=== PATIENT | female | born 1950 | race African-American/Black ===

== ENCOUNTER 2017-12-07 10:53 | Emergency (ER) | payer OTHER ==
[~2017-12-07] VITALS: Ht 160 cm; Wt 62.6 kg
[2017-12-07 12:12] LABS: ABSOLUTE BASOPHIL COUNT 0.1 /CUMM (0.0-0.2); ABSOLUTE EOSINOPHIL COUNT 0.2 /CUMM (0.0-0.7); ABSOLUTE GRANULOCYTE CT 6.4 /CUMM (1.4-6.5); ABSOLUTE LYMPH COUNT 2.7 /CUMM (1.2-3.4); ABSOLUTE MONOCYTE COUNT 0.3 /CUMM (0.10-0.60); BASOPHIL % 0.5 % (0.0-2.0); EOSINOPHIL % 1.9 % (0-5); HEMATOCRIT 34.2 % (37-47); MEAN CORPUSCULAR HGB 36.8 PG (27.0-31.0); MEAN CORPUSCULAR HGB CONC 33.8 G/DL (33.0-37.0); MEAN CORPUSCULAR VOLUME 108.7 FL (81.0-99.0); MEAN PLATELET VOLUME 6.4 FL (7.4-10.4); PLATELET COUNT 524 /CUMM (130-400); RBC DISTRIBUTION WIDTH 16.4 % (11.5-14.5); RED BLOOD CELL CT 3.15 /CUMM (4.20-5.40); WHITE BLOOD CELL COUNT 9.6 /CUMM (4.8-10.8)
--- NOTE | 2017-12-07 12:48 | CT SCAN REPORT ---
EXAMINATION: CT ABDOMEN AND PELVIS WITHOUT CONTRAST CLINICAL INFORMATION: Left lower quadrant pain for 2 weeks. Presumptive diagnosis of diverticulitis, colitis. COMPARISON: None. TECHNIQUE: Multidetector volumetric imaging was performed from the superior aspect of the liver through the pubic symphysis. Sagittal and coronal reformatted images were obtained on the technologist workstation. DLP: 246.52 mGy-cm. FINDINGS: LUNG BASES: There is a 2.1 x 2.4 cm intrapulmonary cyst/pneumatocele in the right lower lobe (series 2, image 6). Lung bases are otherwise unremarkable. LIVER, GALLBLADDER, AND BILIARY TREE: The liver is normal in size, shape, and attenuation. Evaluation for focal hepatic lesion is limited on noncontrast imaging. There is subtle 1.8 x 1.2 cm masslike low attenuation seen in the left lobe of the liver near the hepatic dome and the stomach (series 2, image 8), most likely related to beam hardening artifact, though a subtle hepatic mass in this location cannot be entirely excluded. No biliary ductal dilatation is present. Post cholecystectomy jaylene are in place with no evidence of focal fluid collection in the gallbladder fossa or abnormal intra or extrahepatic biliary dilatation. PANCREAS: There is fatty infiltration seen in the uncinate process of the pancreas. Pancreatic body and tail are diffusely atrophic with relative enlargement of the pancreatic head seen. No definite pancreatic ductal dilatation or discrete mass appreciated on noncontrast imaging. SPLEEN: Unremarkable on noncontrast imaging. ADRENAL GLANDS: There is a 1.7 x 1.4 cm low-attenuation mass in the left adrenal gland with mean attenuation values of 12.6 Hounsfield units, consistent with a benign lipid rich adenoma. The right adrenal gland is normal. KIDNEYS AND URETERS: The kidneys are normal in size, shape, and attenuation. No hydronephrosis or calculi seen. No perinephric stranding. There is a 1.7 x 1.9 cm fluid attenuation mass in the lower pole of the right kidney (series 2, image 34), consistent with a small cyst. The proximal ureters are visualized and appear decompressed and unremarkable. The mid and distal ureters are obscured by a large pelvic mass (see below section on pelvic viscera). BLADDER: Decompressed and poorly assessed. PELVIC VISCERA: There is a large approximately 7.5 x 0.2 x 6 x 1 cm pelvic mass seen in the left adnexa, extending to the uterus with complete loss of the intervening fat planes and volume averaging with adjacent fluid-filled loops of small bowel. Evaluation and measurement of this mass is difficult given lack of intravenous contrast and volume averaging with adjacent structures. Findings may represent a large exophytic uterine mass, such as a fibroid, though other etiology, including exophytic uterine cancer or neoplastic left ovarian mass cannot be entirely excluded. The left ovary is at least partially visualized and is contiguous with this mass (series 61, image 38 and series 602, image 63). Right ovary appears unremarkable. Small amount of free fluid is seen in the pelvis. GASTROINTESTINAL TRACT: There is extensive sigmoid colonic diverticulosis with a segmental approximately 12 cm long segment of the sigmoid colon appearing diffusely thick-walled with surrounding mesenteric edema and stranding, suspicious for acute diverticulitis. No evidence of bowel perforation is seen. There are linear bands extending from this inflamed loop of sigmoid colon to the above-described pelvic mass and there is also loss of fat plane between this segment of the colon and adjacent small bowel loops. No evidence of bowel obstruction is seen. The appendix is partially visualized and is unremarkable. ABDOMINAL WALL: There is a tiny fat-containing umbilical hernia. LYMPH NODES, VASCULAR: No definite abdominal or pelvic adenopathy is seen. Mild atherosclerotic calcifications of the aorta and branch vessels is seen. OSSEOUS STRUCTURES: Vacuum phenomenon in both sacroiliac joints with associated mild degenerative changes are seen. Mild facet arthropathy is noted in the mid and lower lumbar spine. IMPRESSION: 1. Segmental area of abnormal sigmoid colon wall thickening and surrounding edema and stranding is seen in region of colonic diverticulosis, suspicious for acute diverticulitis. The inflammatory changes appear to extend to the adjacent small bowel loops and pelvic organs. No evidence of bowel perforation or intra-abdominal abscess formation is seen. 2. Large pelvic mass, extending to the left of midline into the left adnexa. Based on the imaging available, this mass is felt to be most likely arising from the uterus rather than the left ovary with differential including large exophytic uterine fibroid versus other neoplastic uterine mass. A solid left ovarian mass is felt to be less likely. Evaluation is, however, limited on noncontrast study and further workup will be needed. Consider MRI scan of the pelvis with and without contrast. 3. Question of subtle 1.8 x 1.2 cm mass in the left lobe of the liver versus artifactual appearance due to beam hardening artifact. Consider follow-up imaging for further clarification of findings. 4. Relative enlargement of the pancreatic head with atrophy of the pancreatic body and tail is seen. Consider follow-up imaging to evaluate these findings in greater detail and exclude a subtle pancreatic head mass. This would likely best be accomplished by an MRI scan of the abdomen with and without contrast/MRCP. This would also allow further assessment of the questionable mass in the left lobe of the liver. 5. Status post cholecystectomy with no evidence of biliary dilatation. 6. Tiny fat-containing available hernia.
--- NOTE | 2017-12-07 13:07 | ED GI/GU/ABDOMINAL COMPLAINT ---
History of Present Illness General Chief Complaint: Female Urogenital Problems Stated Complaint: PELVIC PAIN Source: patient Exam Limitations: no limitations Vital Signs & Intake/Output Vital Signs & Intake/Output Vital Signs Date Time Temp Pulse Resp B/P B/P Pulse O2 O2 Flow FiO2 Mean Ox Delivery Rate 12/07 1137 97.4 104 18 139/84 97 Room Air Allergies Coded Allergies: Iodinated Contrast- Oral and IV Dye (Severe, RASH, SOB 12/07/17) STATINS (Severe, GI UPSET 12/07/17) levofloxacin (From LEVAQUIN) (Severe, SOB 12/07/17) Reconcile Medications Amoxicillin/Potassium Clav (Augmentin 875-125 Tablet) 875 MG-125 MG TABLET 1 TAB PO BID diverituclitis Triage Note: 67 Y/O FEMALE C/O DIFFUSE LOWER ABDOMINAL PAIN X 3 WEEKS, INTERMITTENT IN NATURE. PT REPORTS HX DIVERTICULITIS AND STATES THIS PAIN IS SIMILIAR. PT STATES SHE HAS BEEN EVAL'D BY HER DOCTOR AND GI; HAD CT SCAN WITH UNKNOWN RESULTS, "THERE WAS SOMETHING WITH THE COLON". PT DENIES N/V/D. REPORTS DECREASED APPETITE/PO INTAKE. DENIES URINARY SYMPTOMS. AFEBRILE Triage Nurses Notes Reviewed? yes LMP (ages 10-50): unknown ? n Is pt currently ? No Onset: Abrupt Duration: week(s): (3), constant, continues in ED, getting worse Timing: remote history Quality/Severity: moderate, sharpness Severity Numbers: 7 Location: left lower quadrant, suprapubic Radiation: no radiation Activities at Onset: none Prior Abdominal Problems: similar symptoms Past Sexual History: Unobtainable at this time HPI: 67-year-old female past medical history of diverticulosis, hypothyroidism and hypertension presents for evaluation of abdominal pain. Patient reports she first noticed the pain about 3 weeks ago and is been persistent. The pain is located in the left lower quadrant suprapubic area does not radiate. She saw her doctor last week and had a CAT scan but does not know the results. She is not taking any medicine for symptoms. Denies any nausea vomiting or diarrhea no fevers. (Kristofer Mukherjee) Past History Travel History Traveled to [place] past 21 day No Medical History Any Pertinent Medical History? see below for history Neurological: NONE EENT: NONE Cardiovascular: hypertension Respiratory: NONE Gastrointestinal: DIVERTICULOSIS Hepatic: NONE Renal: NONE Musculoskeletal: NONE Psychiatric: NONE Endocrine: hypothyroidism Blood Disorders: NONE Cancer(s): NONE DATA CENTER ARCHITECT/Reproductive: NONE Surgical History Surgical History: non-contributory Psychosocial History What is your primary language Welsh Tobacco Use: Current Daily Use Daily Tobacco Use Amount/Type: => 5 Cigarettes daily Family History Hx Contributory? No (Kristofer Mukherjee) Review of Systems Review of Systems Constitutional: Reports: no symptoms. EENTM: Reports: no symptoms. Respiratory: Reports: no symptoms. Cardiovascular: Reports: no symptoms. GI: Reports: see HPI, abdominal pain. Genitourinary: Reports: no symptoms. Musculoskeletal: Reports: no symptoms. Skin: Reports: no symptoms. Neurological/Psychological: Reports: no symptoms. Hematologic/Endocrine: Reports: no symptoms. Immunologic/Allergic: Reports: no symptoms. All Other Systems: Reviewed and Negative (Kristofer Mukherjee) Physical Exam Physical Exam General Appearance: well developed/nourished, no apparent distress, alert, awake Head: atraumatic, normal appearance Eyes: Bilateral: normal appearance, PERRL, EOMI. Ears, Nose, Throat, Mouth: moist mucous membrane Neck: normal inspection, supple, full range of motion Respiratory: normal breath sounds, chest non-tender, no respiratory distress, lungs clear Cardiovascular: regular rate/rhythm, normal peripheral pulses Peripheral Pulses: 2+ radial (R), 2+ radial (L) Gastrointestinal: normal bowel sounds, soft, no organomegaly, tenderness (llq) Back: normal inspection, normal range of motion, no vertebral tenderness Extremities: normal range of motion Neurologic/Psych: no motor/sensory deficits, awake, alert, oriented x 3, normal gait, normal mood/affect Skin: intact, normal color, warm/dry Core Measures ACS in differential dx? No Sepsis Present: No Sepsis Focused Exam Completed? No (Kristofer Mukherjee) Progress Differential Diagnosis: biliary colic, colon cancer, diverticulitis, ischemic bowel, inflamm bowel dis, kidney stone, pancreatitis, SBO, UTI/pyelo Plan of Care: Orders Procedure Date/time Status URINALYSIS 12/07 1140 Complete LIPASE 12/07 1140 Complete COMPREHENSIVE METABOLIC PANEL 12/07 1140 Complete CBC WITHOUT DIFFERENTIAL 12/07 1140 Complete Laboratory Tests 12/07/17 1205: Urine Color YEL, Urine Clarity CLEAR, Urine pH 6.0, Ur Specific [place] 1.025, Urine Protein NEG, Urine Ketones TRACE H, Urine Nitrite NEG, Urine Bilirubin NEG, Urine Urobilinogen 1.0, Ur Leukocyte Esterase NEG, Ur Microscopic EXAM NOT REQUIRED, Urine Hemoglobin NEG, Urine Glucose NEG 12/07/17 1158: Anion Gap 10, Estimated GFR 55 L, BUN/Creatinine Ratio 13.0, Glucose 94, Calcium 9.7, Total Bilirubin 0.4, AST 18, ALT 21, Alkaline Phosphatase 85, Total Protein 7.0, Albumin 4.1, Globulin 2.9, Albumin/Globulin Ratio 1.4, Lipase 54, CBC w Diff NO MAN DIFF REQ, RBC 3.15 L, MCV 108.7 H, MCH 36.8 H, MCHC 33.8, RDW 16.4 H, MPV 6.4 L, Gran % 67.0, Lymphocytes % 27.9, Monocytes % 2.7, Eosinophils % 1.9, Basophils % 0.5, Absolute Granulocytes 6.4, Absolute Lymphocytes 2.7, Absolute Monocytes 0.3, Absolute Eosinophils 0.2, Absolute Basophils 0.1 Patient is here with left lower quadrant abdominal pain that has been present for 3 weeks. She does have history of diverticulosis. Patient appears clinically well she is afebrile. Labs CT scan ordered. Blood work is unremarkable and unchanged. CT scan shows evidence of diverticulitis. There is also a large pelvic mass as well as abnormalities in the liver and pancreas. There is also lymphadenopathy and a concern for malignancy here. Suspect the diverticulitis is what brought the patient in. She will be started on Augmentin for this. Patient already has a referral with a appointment specialist and will be seeing them this coming week. She was advised to follow-up with her [facility] doctor as soon as possible. Patient already has someone that she will call. Discussed with patient about the urgency of close follow-up. Discussed return precautions in detail Case discussed with Dr. Warner he agrees Diagnostic Imaging: Viewed by Me: CT Scan. Discussed w/RAD: CT Scan. Radiology Impression: PATIENT: ULISES BOOTH PRESENT AGE: 67 PATIENT ACCOUNT NO: [id number] : 48 LOCATION: [facility] ORDERING PHYSICIAN: Kristofer OSORIO SERVICE DATE: 12/07/17-1139 EXAM TYPE: CAT - CT ABD & PELVIS W/O IV CONTRAS EXAMINATION: CT ABDOMEN AND PELVIS WITHOUT CONTRAST CLINICAL INFORMATION: Left lower quadrant pain for 2 weeks. Presumptive diagnosis of diverticulitis, colitis. COMPARISON: None. TECHNIQUE: Multidetector volumetric imaging was performed from the superior aspect of the liver through the pubic symphysis. Sagittal and coronal reformatted images were obtained on the technologist workstation. DLP: 246.52 mGy-cm. FINDINGS: LUNG BASES: There is a 2.1 x 2.4 cm intrapulmonary cyst/pneumatocele in the right lower lobe (series 2, image 6). Lung bases are otherwise unremarkable. LIVER, GALLBLADDER, AND BILIARY TREE: The liver is normal in size, shape, and attenuation. Evaluation for focal hepatic lesion is limited on noncontrast imaging. There is subtle 1.8 x 1.2 cm masslike low attenuation seen in the left lobe of the liver near the hepatic dome and the stomach (series 2, image 8), most likely related to beam hardening artifact, though a subtle hepatic mass in this location cannot be entirely excluded. No biliary ductal dilatation is present. Post cholecystectomy jaylene are in place with no evidence of focal fluid collection in the gallbladder fossa or abnormal intra or extrahepatic biliary dilatation. PANCREAS : There is fatty infiltration seen in the uncinate process of the pancreas. Pancreatic body and tail are diffusely atrophic with relative enlargement of the pancreatic head seen. No definite pancreatic ductal dilatation or discrete mass appreciated on noncontrast imaging. SPLEEN: Unremarkable on noncontrast imaging. ADRENAL GLANDS: There is a 1.7 x 1.4 cm low-attenuation mass in the left adrenal gland with mean attenuation values of 12.6 Hounsfield units, consistent with a benign lipid rich adenoma. The right adrenal gland is normal. KIDNEYS AND URETERS: The kidneys are normal in size, shape, and attenuation. No hydronephrosis or calculi seen. No perinephric stranding. There is a 1.7 x 1.9 cm fluid attenuation mass in the lower pole of the right kidney (series 2, image 34), consistent with a small cyst. The proximal ureters are visualized and appear decompressed and unremarkable. The mid and distal ureters are obscured by a large pelvic mass (see below section on pelvic viscera). BLADDER: Decompressed and poorly assessed. PELVIC VISCERA: There is a large approximately 7.5 x 0.2 x 6 x 1 cm pelvic mass seen in the left adnexa, extending to the uterus with complete loss of the intervening fat planes and volume averaging with adjacent fluid-filled loops of small bowel. Evaluation and measurement of this mass is difficult given lack of intravenous contrast and volume averaging with adjacent structures. Findings may represent a large exophytic uterine mass, such as a fibroid, though other etiology, including exophytic uterine cancer or neoplastic left ovarian mass cannot be entirely excluded. The left ovary is at least partially visualized and is contiguous with this mass (series 61, image 38 and series 602, image 63). Right ovary appears unremarkable. Small amount of free fluid is seen in the pelvis. GASTROINTESTINAL TRACT: There is extensive sigmoid colonic diverticulosis with a segmental approximately 12 cm long segment of the sigmoid colon appearing diffusely thick-walled with surrounding mesenteric edema and stranding, suspicious for acute diverticulitis. No evidence of bowel perforation is seen. There are linear bands extending from this inflamed loop of sigmoid colon to the above-described pelvic mass and there is also loss of fat plane between this segment of the colon and adjacent small bowel loops. No evidence of bowel obstruction is seen. The appendix is partially visualized and is unremarkable. ABDOMINAL WALL: There is a tiny fat-containing umbilical hernia. LYMPH NODES, VASCULAR: No definite abdominal or pelvic adenopathy is seen. Mild atherosclerotic calcifications of the aorta and branch vessels is seen. OSSEOUS STRUCTURES: Vacuum phenomenon in both sacroiliac joints with associated mild degenerative changes are seen. Mild facet arthropathy is noted in the mid and lower lumbar spine. IMPRESSION: 1. Segmental area of abnormal sigmoid colon wall thickening and surrounding edema and stranding is seen in region of colonic diverticulosis, suspicious for acute diverticulitis. The inflammatory changes appear to extend to the adjacent small bowel loops and pelvic organs. No evidence of bowel perforation or intra-abdominal abscess formation is seen. 2. Large pelvic mass, extending to the left of midline into the left adnexa. Based on the imaging available, this mass is felt to be most likely arising from the uterus rather than the left ovary with differential including large exophytic uterine fibroid versus other neoplastic uterine mass. A solid left ovarian mass is felt to be less likely. Evaluation is, however, limited on noncontrast study and further workup will be needed. Consider MRI scan of the pelvis with and without contrast. 3. Question of subtle 1.8 x 1.2 cm mass in the left lobe of the liver versus artifactual appearance due to beam hardening artifact. Consider follow-up imaging for further clarification of findings. 4. Relative enlargement of the pancreatic head with atrophy of the pancreatic body and tail is seen. Consider follow-up imaging to evaluate these findings in greater detail and exclude a subtle pancreatic head mass. This would likely best be accomplished by an MRI scan of the abdomen with and without contrast/MRCP. This would also allow further assessment of the questionable mass in the left lobe of the liver. 5. Status post cholecystectomy with no evidence of biliary dilatation. 6. Tiny fat-containing available hernia. DICTATED BY: Denisha Davidson MD DATE/TIME DICTATED:12/07/171201 FISH WARDEN:CATRACHITA DATE/TIME TRANSCRIBED:12/07/171201 Initial ED EKG: none (Kristofer Mukherjee) Departure Departure Disposition: HOME OR SELF CARE Condition: Stable Clinical Impression Primary Impression: Diverticulitis Referrals: Nidia Calvin MD (PCP/Family) Additional Instructions: Take antibiotics as directed for the full course. Bentyl as needed for pain. It is very important that you follow-up with your appointment specialist and [facility] doctor. There are additional findings on your CAT scan that require prompt follow-up. If you have any difficulty getting in with 1 of the specialist return to the emergency department or give us a call. If you have worsening pain, fever, blood in her stool, chest pain, shortness of breath or any other concerns return immediately. Departure Forms: Customer Survey General Discharge Information Prescriptions: Current Visit Scripts Amoxicillin/Potassium Clav (Augmentin 875-125 Tablet) 1 TAB PO BID #[id number] TAB (Kristofer Mukherjee) PA/WATCH AND CLOCK MAKER AND REPAIRER Co-Sign Statement Statement: ED Attending supervision documentation- [x] I saw and evaluated the patient. I have also reviewed all the pertinent lab results and diagnostic results. I agree with the findings and the plan of care as documented in the PA's/WATCH AND CLOCK MAKER AND REPAIRER's documentation. Patient presents for evaluation of abdominal pain. Physical examination reveals tenderness of the left lower quadrant without rebound or guarding [] I have reviewed the ED Record and agree with the PA's/WATCH AND CLOCK MAKER AND REPAIRER's documentation. [] Additions or exceptions (if any) to the PAs/WATCH AND CLOCK MAKER AND REPAIRER's note and plan are summarized below: [] (Alana ALLEN,Navin Harvey)
[2017-12-07] MEDS ORDERED: AUGMENTIN 875-1 EACH PO (13:20)
== END 2017-12-07 13:30 ==
LOC: ERH 10:53
PROVIDERS: Physician Assistant Medical
DX: K57.92 Diverticulitis of intestine, part unspecified, without perforation or abscess without bleeding (principal); I10 Essential (primary) hypertension; E03.9 Hypothyroidism, unspecified; F17.210 Nicotine dependence, cigarettes, uncomplicated
CPT/HCPCS: 74176; 81003